=== PATIENT | female | born 2000 | race Caucasian/White ===

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

== ENCOUNTER 2018-08-05 14:55 | Emergency (ER) | payer BC ==
[2018-08-05 15:27] VITALS: BP 109/72
--- NOTE | 2018-08-05 15:36 | UC ---
Throat Pain/Nasal Jomar HPI - HPI Summary HPI Summary: Patient has had a recent upper respiratory illness with head congestion, sore throat and started experiencing left ear pain 3 days ago. Her roommate was recently diagnosed with strep pharyngitis in the past 3 days. Patient had diarrhea yesterday however that has resolved today. Eyes any fever or chills. She does have a history of seasonal allergies. The past 2 days she has also experienced burning on urination and frequency. - History of Current Complaint Chief Complaint: UCGeneralIllness Stated Complaint: SORE THROAT,LT EAR COMPLAINT,URINARY Time Seen by Provider: 08/05/18 15:24 Hx Obtained From: Patient Hx Last Menstrual Period: july 14 ?: No Onset/Duration: Gradual Onset Severity: Mild Pain Intensity: 0 Associated Signs & Symptoms: Positive: Nasal Discharge, Other - Burning on urination and frequency the past 2 days. Related History: Seasonal Allergies - Epiglottits Risk Factors Epiglottis Risk Factors: Negative - Allergies/Home Medications Allergies/Adverse Reactions: Allergies Allergy/AdvReac Type Severity Reaction Status Date / Time dogs Allergy Mild sinus Uncoded 08/05/18 15:27 PMH/Surg Hx/FS Hx/Imm Hx Previously Healthy: Yes - Surgical History Surgical History: Yes Surgery Procedure, Year, and Place: T&A, scope of stomach. [place] teeth, 08/2013 - Family History Known Family History: Positive: None, Hypertension - father, Other - hypotension - mother - Social History Alcohol Use: None Substance Use Type: None Smoking Status (MU): Never Smoked Tobacco Have You Smoked in the Last Year: No - Immunization History Most Recent Influenza Vaccination: 12/02/16 Vaccination Up to Date: Yes Review of Systems All Other Systems Reviewed And Are Negative: Yes ENT: Positive: Sore Throat - Sore throat for 2 days. Genitourinary: Positive: Dysuria, Frequency - Urinary frequency and burning on urination over the past 2 days.. Negative: Vaginal/Penile Burning, Vaginal/ Penile Itching, Vaginal/Penile Discharge, Vaginal/Penile Pain, Vaginal/Penile Tenderness Is Patient Immunocompromised?: No Physical Exam Triage Information Reviewed: Yes Appearance: Well-Appearing, No Pain Distress, Well-Nourished Vital Signs: Initial Vital Signs Temp 98.8 F 08/05/18 15:19 Pulse 84 08/05/18 15:19 Resp 18 08/05/18 15:19 BP 109/72 08/05/18 15:19 Pulse Ox 100 08/05/18 15:19 Vital Signs Reviewed: Yes Eye Exam: Normal ENT Exam: Normal Neck exam: Normal Respiratory Exam: Normal Cardiovascular Exam: Normal Abdominal Exam: Normal Bowel Sounds: Positive: Present Musculoskeletal Exam: Normal Neurological Exam: Normal Psychological Exam: Normal Skin Exam: Normal Throat Pain/Nasal Course/Dx - Course Course Of Treatment: Rapid strep test was negative, and hCG was negative, urinalysis was positive with leukocytes. Going to treat the patient with cephalexin 500 mg by mouth 3 times a day 7 days. She is to follow-up with her primary care provider if no improvement in 3 or 4 days. - Differential Dx/Diagnosis Provider Diagnosis: UTI (urinary tract infection) Discharge - Sign-Out/Discharge Documenting (check all that apply): Patient Departure All imaging exams completed and their final reports reviewed: No Studies - Discharge Plan Condition: Good Disposition: HOME Prescriptions: Cephalexin CAP* [Keflex 500 CAP*] 500 mg PO TID 7 Days #21 cap Patient Education Materials: Urinary Tract Infection in Women (ED) Referrals: Shaun Elkins MD [Primary Care Provider] - Additional Instructions: Increase fluids, follow-up with your primary care provider if no improvement in 2 or 3 days, go to the emergency room if you develop fever, chills, back pain, vomiting and unable keep the medication down. - Billing Disposition and Condition Condition: GOOD Disposition: Home
--- NOTE | 2018-08-07 07:19 | UC ---
- Progress Note Progress Note: notify pt no UTI stop antibiotic recheck if still symptomatic Course/Dx - Diagnoses Provider Diagnoses: UTI (urinary tract infection) Discharge - Sign-Out/Discharge Documenting (check all that apply): Post-Discharge Follow Up All imaging exams completed and their final reports reviewed: No Studies - Discharge Plan Condition: Good Disposition: HOME Prescriptions: Cephalexin CAP* [Keflex 500 CAP*] 500 mg PO TID 7 Days #21 cap Patient Education Materials: Urinary Tract Infection in Women (ED) Referrals: Shaun Elkins MD [Primary Care Provider] - Additional Instructions: Increase fluids, follow-up with your primary care provider if no improvement in 2 or 3 days, go to the emergency room if you develop fever, chills, back pain, vomiting and unable keep the medication down. - Billing Disposition and Condition Condition: GOOD Disposition: Home
== END 2018-08-05 16:11 | disposition home or self-care (01) ==
LOC: UCCORT 14:55
DX: N39.0 Urinary tract infection, site not specified (principal); R19.7 Diarrhea, unspecified; Z91.09 Other allergy status, other than to drugs and biological substances
CPT/HCPCS: 81003; 84702; 87086; 87651; 99212; G0463

== ENCOUNTER 2019-01-22 11:26 | Emergency (ER) | payer BC ==
[2019-01-22 11:53] VITALS: BP 96/56
--- NOTE | 2019-01-22 13:09 | UC ---
Lower Extremity/Ankle HPI - HPI Summary HPI Summary: 18 yo WF s/p injury to dorsum of right foot, got stepped on with soccer cleats by another player 1 week ago, swollen and hurts, denies numbness and tingling - History of Current Complaint Chief Complaint: UCLowerExtremity Stated Complaint: RT FOOT INJURY Time Seen by Provider: 01/22/19 11:43 Hx Obtained From: Patient Hx Last Menstrual Period: unknown ?: No Onset/Duration: Sudden Onset Severity Initially: Moderate Severity Currently: Moderate Pain Intensity: 5 - Allergies/Home Medications Allergies/Adverse Reactions: Allergies Allergy/AdvReac Type Severity Reaction Status Date / Time dogs Allergy Mild sinus Uncoded 01/22/19 11:48 PMH/Surg Hx/FS Hx/Imm Hx - Surgical History Surgical History: Yes Surgery Procedure, Year, and Place: T&A, scope of stomach. [place] teeth, 08/2013 - Family History Known Family History: Positive: None, Hypertension - father, Other - hypotension - mother, Non-Contributory - Social History Alcohol Use: None Substance Use Type: None Smoking Status (MU): Never Smoked Tobacco Have You Smoked in the Last Year: No - Immunization History Most Recent Influenza Vaccination: 12/02/16 Vaccination Up to Date: Yes Review of Systems All Other Systems Reviewed And Are Negative: Yes Constitutional: Positive: Negative Skin: Positive: Negative Eyes: Positive: Negative ENT: Positive: Negative Respiratory: Positive: Negative Cardiovascular: Positive: Negative Gastrointestinal: Positive: Negative Genitourinary: Positive: Negative Motor: Positive: Negative Neurovascular: Positive: Negative Musculoskeletal: Positive: Other: - see HPI Neurological: Positive: Negative Psychological: Positive: Negative Is Patient Immunocompromised?: No Physical Exam - Summary Physical Exam Summary: Appearance: Positive: No Pain Distress Skin: Positive: Warm Head/Face: Positive: Normal Head/Face Inspection Eyes: Positive: Normal ENT: Positive: Normal ENT inspection Neck: Positive: Supple Respiratory/Lung Sounds: Positive: Clear to Auscultation. Negative: Rales, Rhonchi, Wheezes Cardiovascular: Positive: Normal, RRR, S1, S2 Abdomen : soft, NT/ND Musculoskeletal: Positive: right dorsum of foot tenderness and mild ecchymosis in area of toes 2-4 Neurological: Positive: CN 2-12 grossly intact Vital Signs: Initial Vital Signs Temp 37.1 C 01/22/19 11:49 Pulse 65 01/22/19 11:49 Resp 18 01/22/19 11:49 BP 96/56 01/22/19 11:49 Pulse Ox 100 01/22/19 11:49 Lower Extremity Course/Dx - Course Course Of Treatment: Right foot injury- likely a bone contusion and pt worried about residual swelling. Feels better bearing weight with post-op shoe, Keep foot elevated, NSAIDS PRN - Differential Dx/Diagnosis Differential Diagnosis/HQI/PQRI: Contusion, Sprain, Strain, Tendonitis Provider Diagnosis: Foot pain, right, Contusion of foot, right Discharge ED - Sign-Out/Discharge Documenting (check all that apply): Patient Departure All imaging exams completed and their final reports reviewed: Yes - Discharge Plan Condition: Stable Disposition: HOME Prescriptions: Naproxen [Naproxen 500 mg tab] 500 mg PO BID 10 Days #20 tablet Patient Education Materials: Contusion in Adults (ED) Forms: *Physical Education Release Referrals: Shaun Elkins MD [Primary Care Provider] - - Billing Disposition and Condition Condition: STABLE Disposition: Home
== END 2019-01-22 13:25 | disposition home or self-care (01) ==
LOC: UCCORT 11:26
DX: S90.31XA Contusion of right foot, initial encounter (principal); W50.0XXA Accidental hit or strike by another person, initial encounter; Z91.09 Other allergy status, other than to drugs and biological substances; Y93.66 Activity, soccer; Y92.9 Unspecified place or not applicable
CPT/HCPCS: 99212; G0463

== ENCOUNTER 2019-04-26 12:30 | Emergency (ER) | payer BC ==
[2019-04-26 12:59] VITALS: BP 107/60
--- NOTE | 2019-04-26 13:15 | UC ---
Throat Pain/Nasal Jomar HPI - HPI Summary HPI Summary: cough x 2 days cough is productive with yellow sputum worse with deep breathing, better with rest nasal congestion , pnd, sore throat no fever, no chills - History of Current Complaint Chief Complaint: UCRespiratory Stated Complaint: ST/HEAD CONGESTION Time Seen by Provider: 04/26/19 12:58 Hx Obtained From: Patient Hx Last Menstrual Period: unknown ?: No Onset/Duration: Gradual Onset, Lasting Days - 2, Still Present Severity: Moderate Pain Intensity: 6 Cough: None Associated Signs & Symptoms: Positive: Sinus Discomfort, Nasal Discharge. Negative: Fever, Rash - Allergies/Home Medications Allergies/Adverse Reactions: Allergies Allergy/AdvReac Type Severity Reaction Status Date / Time dogs Allergy Mild sinus Uncoded 04/26/19 12:56 Home Medications: Home Medications Phenylephrine/Dm/Acetaminop/GG [Tylenol Cold-Flu Severe Caplet] 1 each PO ONCE 04/26/19 [History Confirmed 04/26/19] PMH/Surg Hx/FS Hx/Imm Hx Previously Healthy: Yes - Surgical History Surgical History: Yes Surgery Procedure, Year, and Place: T&A, scope of stomach. [place] teeth, 08/2013 - Family History Known Family History: Positive: None, Hypertension - father, Other - hypotension - mother, Non-Contributory - Social History Alcohol Use: None Substance Use Type: None Smoking Status (MU): Never Smoked Tobacco Have You Smoked in the Last Year: No - Immunization History Most Recent Influenza Vaccination: 12/02/16 Vaccination Up to Date: Yes Review of Systems All Other Systems Reviewed And Are Negative: Yes Constitutional: Positive: Negative Skin: Positive: Negative Eyes: Positive: Negative ENT: Positive: Sore Throat, Nasal Discharge, Sinus Congestion Respiratory: Positive: Cough Cardiovascular: Positive: Negative Is Patient Immunocompromised?: No Physical Exam Triage Information Reviewed: Yes Appearance: Well-Appearing, No Pain Distress, Well-Nourished Vital Signs: Initial Vital Signs Temp 98.6 F 04/26/19 12:57 Pulse 97 04/26/19 12:57 Resp 14 04/26/19 12:57 BP 107/60 04/26/19 12:57 Pulse Ox 99 04/26/19 12:57 Vital Signs Reviewed: Yes Eye Exam: Normal Eyes: Positive: Conjunctiva Clear ENT: Positive: Normal ENT inspection, Hearing grossly normal, Pharynx normal, Nasal drainage, TMs normal Neck: Positive: Supple, Nontender, No Lymphadenopathy Respiratory: Positive: Chest non-tender, Lungs clear, Normal breath sounds Cardiovascular: Positive: RRR, No Murmur, Pulses Normal Throat Pain/Nasal Course/Dx - Differential Dx/Diagnosis Provider Diagnosis: URI (upper respiratory infection) Discharge ED - Sign-Out/Discharge Documenting (check all that apply): Patient Departure All imaging exams completed and their final reports reviewed: No Studies - Discharge Plan Condition: Stable Disposition: HOME Patient Education Materials: Upper Respiratory Infection (ED) Referrals: Shaun Elkins MD [Primary Care Provider] - If Needed - Billing Disposition and Condition Condition: STABLE Disposition: Home
== END 2019-04-26 13:14 | disposition home or self-care (01) ==
LOC: UCCORT 12:30
DX: J06.9 Acute upper respiratory infection, unspecified (principal); Z91.09 Other allergy status, other than to drugs and biological substances
CPT/HCPCS: 99211; G0463